=== PATIENT | female | born 1940 | race African-American/Black ===

== ENCOUNTER 2018-12-27 21:15 | Inpatient (IN) ==
[2018-12-27 22:34] LABS: BASO# 0.01 X1000 (0.0-0.2); BASO% 0.1 % (0.0-0.8); EOS# 0.01 X1000 (0.0-0.7); EOS% 0.1 % (0.0-10.0); HEMATOCRIT 38.1 % (37.0-47.0); HEMOGLOBIN 12.4 g/dL (12.0-16.0); IMM GRAN# 0.04 X1000 (0.0-0.04); IMM GRAN% 0.2 % (0.0-0.5); LYMPH# 1.15 X1000 (1.2-3.4); LYMPH% 7.1 % (20.5-51.1); MCH 29.7 PG (27-31); MCHC 32.5 g/dL (33-37); MCV 91.4 FL (81-99); MONO# 1.02 X1000 (0.11-0.59); MONO% 6.3 % (1.7-9.3); MPV 11.9 FL (7.4-10.4); NEUT# 14.02 X1000 (1.4-6.5); NEUT% 86.2 % (42.2-75.2); PLT 251 X1000 (130-400); RBC 4.17 XMIL (4.2-5.4); RDW 13.3 % (11.5-14.5); WBC 16.25 X1000 (4.8-10.8)
[2018-12-27 22:43] LABS: INR 1.02; PROTIME 13.5 Seconds (11.0-16.0)
[2018-12-27 23:08] LABS: ALB/GLOB RATIO 1.2; ALBUMIN 4.3 g/dL (3.5-5.0); CALCIUM 9.9 mg/dL (8.8-10.2); CREATININE 1.8 mg/dL (0.5-0.9); POTASSIUM 4.8 mmol/L (3.5-5.1); TOTAL BILIRUBIN 0.54 mg/dL (0.20-1.00); TOTAL PROTEIN 7.8 g/dL (6.3-8.3)
[2018-12-27] MEDS ORDERED: STERILE WATER INJ. INJ ONE (23:16)
[2018-12-27] MEDS ORDERED: GEODON IM ONE (23:16)
[2018-12-27] MEDS ORDERED: ATIVAN IM ONE (23:16)
[2018-12-27] MEDS ORDERED: ATIVAN ONE (23:22)
[2018-12-27] MEDS ORDERED: NS 1,000 ML IV ONE (23:42)
[2018-12-28] MEDS ORDERED: ROCEPHIN 1 GM in NS 50 ML IV ONE (00:26)
--- NOTE | 2018-12-28 00:51 | PROVIDER DOCUMENTATION ---
This chart was entered by Abigail Birmingham Scribe, acting as scribe for Og Mendoza MD. HPI-General Adult - General Chief Complaint: Altered Mental Status Stated Complaint: ams Time Seen by Provider: 12/27/18 21:18 Source: patient Unable to obtain history due to:: altered (no verbal response) Allergies/Adverse Reactions: Patient Allergies Allergy/AdvReac Type Severity Reaction Status Date / Time No Known Allergies Allergy Verified 12/27/18 23:05 Home Medications: Home Medication List Medication Instructions Recorded Confirmed Last Taken Type Diltiazem [Cardizem] 90 mg PO TID 12/21/11 12/27/18 03/29/14 History Omeprazole [Prilosec] 20 mg PO DAILY 12/21/11 12/27/18 03/29/14 History ROSUVAstatin [Crestor] 10 mg PO DAILY 12/21/11 12/27/18 03/29/14 History Dicyclomine [Bentyl] 20 mg PO 4XDAY PRN PRN #20 capsule 03/29/14 12/27/18 Unknown Rx Donepezil HCl 5 mg PO DAILY 12/27/18 12/27/18 Unknown History Gabapentin 100 mg PO QHS 12/27/18 12/27/18 Unknown History Loratadine 10 mg PO DAILY 12/27/18 12/27/18 Unknown History Polyethylene Glycol [Polyox 1 packet PO DAILY 12/27/18 12/27/18 Unknown History [id number]] Temazepam 15 mg PO QHS 12/27/18 12/27/18 Unknown History - History of Present Illness -Gen Adult Nature of Presenting Problems: pt is a 78 yr old female presenting via EMS, EMS reports pt was found partially under her dresser by family gloria, family last spoke with pt early this AM, pt was normal at that time, pt has hx of syncopal episodes. pt moves all extremities with ease, no verbal responses. pt has laceration to bridge of nose, right eye is swollen shut and swelling noted to forehead. family admits pt hx of same behaviors, family reports pt had them locked out of house when she fell, pt crawled underneath her dresser to hide after fall,pt normally crawls under furniture post falls. family reports pt will frequently stare off and not answer questions. Review of Systems - Adult - REVIEW OF SYSTEMS - ADULT ROS:: unobtainable per condition Constitutional: reports: no symptoms reported Past History - Adult - PAST MEDICAL HISTORY-ADULT Review of Records: reports: Old Records Reviewed, Nursing Assessment Review, Medications Reviewed, Social history reviewed & non-contributory. Major Childhood Illnesses: reports: denies history Cardiovascular: reports: denies history Respiratory: reports: denies history Gastrointestinal: reports: denies history Obstetrical/Gynecological: reports: denies history Genitourinary: reports: denies history Musculoskeletal: reports: denies history Neurological: reports: denies history Psychiatric: reports: denies history Endocrine/Immune: reports: denies history Other Conditions: reports: denies history - PRIOR SURGERIES/PROCEDURES Surgical/Procedure History: reports: appendectomy - IMMUNIZATION STATUS Childhood Immunizations: See Nurse Assessment Flu Vaccine: See Nurse Assessment - FAMILY HISTORY Family History: reviewed, not pertinent - SOCIAL HISTORY Smoking: non-smoker Substance Use: none/never Living Situation: family Physical Exam-General - PHYSICAL EXAM-ADULT Initial Vital Signs Reviewed: Yes - CONSTITUTIONAL General Appearance: alert, no apparent distress, other (no verbal response) - EYES Eyes: PERRL/EOMI - HEAD, EARS, NOSE, MOUTH & THROAT HENMT: moist mucous membranes, other (laceration across nose, swelling to forehead, right eye swollen shut) - NECK Neck: full range of motion, supple, normal inspection - RESPIRATORY Respiratory: lungs clear, normal breath sounds, no respiratory distress, no accessory muscle use - CARDIOVASCULAR Cardiovascular: normal peripheral pulses, regular rate, rhythm, no edema - GASTROINTESTINAL (ABDOMEN) Abdominal Exam: normal bowel sounds, non tender, soft - LYMPHATIC Lymphatic: no adenopathy - MUSCULOSKELETAL Back Exam: normal inspection Extremity: normal range of motion, non-tender, normal inspection - SKIN Integumentary: normal color, normal turgor, warm/dry, laceration(s) (1cm across bridge of nose), swelling (right eye swollen shut, swelling noted to forehead) - NEUROLOGIC Neurologic: grossly normal, no motor/sensory deficits - PSYCHIATRIC Psych/Mental Status: other (no verbal response) Progress - PLAN OF CARE/RESULTS Progress/Plan/Lab Results: Orders Category Date Time Status CHEST-1 VIEW [RAD] Stat Exams 12/27/18 21:[address] HEAD/C-SPINE W/O CONTRAST [CT] Stat Exams 12/27/18 21:[address] MAXILLOFACIAL(SINUS) W/O CO [CT] Stat Exams 12/27/18 21:47 Ordered PELVIS [RAD] Stat Exams 12/27/18 21:48 Ordered CBC WITH ELECTRONIC DIFF [HEME] Stat Lab 12/27/18 21:53 Uncollected CK TOTAL [CHEM] Stat Lab 12/27/18 21:55 Uncollected CMP [COMPREHENSIVE METABOLIC PANEL] [CHEM] Stat Lab 12/27/18 21:48 Uncollected PROTIME WITH INR [COAG] Stat Lab 12/27/18 21:53 Uncollected PTT [COAG] Stat Lab 12/27/18 21:53 Uncollected URINALYSIS W/POSS RFLX CULT [URINALYSIS] Stat Lab 12/27/18 21:53 Uncollected EKG [EKG] Stat Ther 12/27/18 21:58 Ordered Proceed to admit with Dr. Soto for rhabodomyolysis with IV fluids. Her syncope episode was likely related to dehydration given her elevated serum sodium. Trauma imaging was negative except for significant right facial, periorbital, and anterior frontal soft tissue swelling without fracture. She also has a large right periorbital and right frontal scalp hematoma. No blood thinners and no skull fractures. Nieces aware and agree with plan of care. Barnard catheter placed in ED and empiric rocephin given for possible UTI. Result Diagrams: 12/27/18 22:08 12/27/18 22:08 - CT/MRI 1 CT Study: Cervical Spine, Head Impression: Abnormal (head 1. no acute intracranial abnormality, chronic changes as noted 2. large right periorbital and right frontal scalp hematoma. no acute fracture. c spine 1. no acute fracture 2. multilevel severe spondylosis), See EMR Report 2 CT Study: Facial Bones (maxillofacial) Impression: Abnormal (significant right facial, periorbital and anterior frontal soft tissue swelling, no acute facial fracture), See EMR Report Departure - Departure Date of Disposition Decision: 12/28/18 Time of Disposition Decision: 00:31 DIAGNOSIS: Periorbital hematoma of right eye, Rhabdomyolysis, Hematoma of frontal scalp, Acute encephalopathy, Leukocytosis, Acute on chronic renal insufficiency Disposition: ADMITTED INPATIENT 09 Certified Medical Emergency: Emergent Condition: Fair Referrals and Follow-Ups: Lizbeth Montague [Primary Care Provider] - - Critical Care Note This patient required my direct & personal management of CC.: No Attestation - Physician/ DANNY Attestation Patient care was provided by Advanced Practice Provider:: No The physician spent face to face time with patient:: Yes Advanced Practice Provider documentation review:: Supervising physician onsite and consulted in the evaluation and care of this patient. The physician did have a face to face encounter with the patient. This chart was documented by the indicated scribe, (Abigail Birmingham Scribe) and accurately reflects the services I performed and decisions made by me, Og Mendoza MD, as attested by the provider's signature.
[2018-12-28 01:50] LABS: URINE SOURCE CATH
[2018-12-28 02:04] LABS: BILIRUBIN URINE NEGATIVE (NEGATIVE); BLOOD URINE LARGE (NEGATIVE); COLOR YELLOW; GLUCOSE URINE NEGATIVE (NEGATIVE); KETONE URINE NEGATIVE (NEGATIVE); LEUKOCYTES URINE NEGATIVE (NEGATIVE); NITRITE URINE NEGATIVE (NEGATIVE); PH URINE 5.5; PROTEIN URINE 50 mg/dL (NEGATIVE); SP GRAVITY URINE 1.016; TURBIDITY URINE CLEAR (CLEAR); UR EPITHELIAL CELLS <10 /HPF (<10); URINE BACTERIA NEGATIVE /HPF; URINE RBC <10 /HPF (<10); URINE WBC <10 /HPF (<10); UROBILINOGEN URINE NORMAL (NORMAL)
--- NOTE | 2018-12-28 06:46 | Diag Imaging Result Doc PS360 ---
CT HEAD/C-SPINE W/O CONTRAST, CT MAXILLOFACIAL(SINUS) W/O CO - 12/27/2018 INDICATION: trauma COMPARISON: 12/22/2017 FINDINGS: Head CT: Stable surgical changes to the right frontal skull. Stable left ventriculostomy shunt catheter. Stable moderately extensive cerebral white matter hypodensities diffusely, worst at the right frontal lobe. No intracranial mass or hemorrhage. There is a large right periorbital soft tissue hematoma. The calvarium is intact. Cervical spine: Alignment is anatomic. No fracture or subluxation. There is moderate disc degeneration at C4-5, C5-6 and C6-7. Facial bones: The facial bones are intact. No fracture or dislocation. There is a large forehead and right periorbital soft tissue hematoma. IMPRESSION: Severe forehead and right periorbital soft tissue hematoma. No internal injuries. This exam was performed using automated exposure control, adjustment of mA or kV according to patient size, and/or use of iterative reconstruction technique Electronically signed by Oliver Zhu 12/28/2018 6:44 AM
--- NOTE | 2018-12-28 07:11 | Diag Imaging Result Doc PS360 ---
CT THORAX/ABD/PELVIS W/O CON - 12/27/2018 INDICATION: trauma COMPARISON: 08/23/2014 FINDINGS: CHEST: There is severe patient motion artifact. Heart and great vessels are grossly normal. No adenopathy. There is some trace linear atelectasis. Otherwise the lungs are clear. No obvious fractures. Abdomen pelvis: There are numerous bilateral renal cysts. No radiodense renal stones. No hydronephrosis or hydroureter. Abdominal organs are grossly normal. Shunt catheter tubing terminates at the left lower quadrant. No bowel obstruction or inflammation. Degenerating fibroids in the uterine fundus. Urinary bladder and rectum are normal. No obvious fractures. IMPRESSION: No acute injury. This exam was performed using automated exposure control, adjustment of mA or kV according to patient size, and/or use of iterative reconstruction technique Electronically signed by Oliver Zhu 12/28/2018 7:09 AM
--- NOTE | 2018-12-28 07:29 | EKG Report ---
Test Performed on : 12/28/2018 04:07:37 AM Test Reason : syncope Blood Pressure : / mmHG Vent. Rate : 083 BPM Atrial Rate : 083 BPM P-R Int : 168 ms QRS Dur : 074 ms QT Int : 406 ms P-R-T Axes : 077 060 077 degrees QTc Int : 477 ms Normal sinus rhythm. Normal ECG When compared with ECG of 20-DEC-2017 16:49, No significant change was found Unconfirmed Result
--- NOTE | 2018-12-28 08:46 | HISTORY AND PHYSICAL ---
PRIMARY CARE PHYSICIAN: Dr. Lizbeth Montague. CHIEF COMPLAINT: Altered mental status. HISTORY OF PRESENTING ILLNESS: An 78-year-old elderly female with a history of CVA, GERD, chronic kidney disease, hypertension who apparently was found on the floor by family members. Apparently, she has a history of frequent falls. It is unclear how long she was on the floor. She sustained scalp hematoma and was moderately altered. Due to her presenting symptoms, she will require admission for further management. The patient is a poor historian due to her condition and most of the history is obtained from previous records. PAST MEDICAL HISTORY: Includes CVA, GERD, chronic kidney disease, hypertension, brain aneurysm. PAST SURGICAL HISTORY: Appendectomy, aneurysm clipping. ALLERGIES: No known drug allergies. CURRENT MEDICATIONS: Diltiazem 90 mg p.o. t.i.d., Donepezil 5 mg p.o. daily, gabapentin 100 mg p.o. at bedtime, omeprazole 20 mg p.o. daily, Crestor 10 mg p.o. daily, temazepam 15 mg p.o. at bedtime. SOCIAL HISTORY: No history of smoking, alcohol or illicit drug use. FAMILY HISTORY: Unknown. REVIEW OF SYSTEMS: Unable to obtain. PHYSICAL EXAMINATION: GENERAL: The patient is resting comfortably. She is without any respiratory distress. VITAL SIGNS: Pulse 128, respirations 26, blood pressure 152/89. HEENT: There is moderate amount of soft tissue swelling on her scalp and right periorbital region. NECK: No masses. CHEST: Clear to auscultation. CARDIOVASCULAR: Regular rate and rhythm. ABDOMEN: Soft. Positive bowel sounds. EXTREMITIES: No edema. NEUROLOGIC: Patient is arousable to tactile stimuli. GENITOURINARY: No bladder distention. SKIN: Warm. LABORATORIES AND STUDIES: WBC 16.25, hemoglobin 12.4, hematocrit 38.1, platelets 251,000. Sodium 148, potassium 4.8, chloride 107, CO2 is 21, BUN is 27, creatinine is 1.8, glucose is 142. CT of the head was negative. ASSESSMENT: This is an 78-year-old female with a history of CVA, GERD, chronic kidney disease and hypertension who presented to the emergency department after she had a fall. She apparently was found on the floor and it is unclear how long she has been there. She was evaluated in the emergency department and she was basically altered and she seems to have sustained soft-tissue hematoma on her frontal scalp and also a right periorbital region. Due to her presenting symptoms, she will require admission for further management. 1. Altered mental status. Encephalopathy. 2. Dehydration. 3. Status post multiple falls. 4. Right frontal scalp hematoma. 5. Right eye periorbital hematoma. 6. Rhabdomyolysis. 7. Acute on chronic kidney disease. 8. Leukocytosis. 9. Hypertension. PLAN: 1. We will admit patient to PVC 2. Continue with neuro checks. 3. Continue with IV fluids. 4. The patient had adequate pain control. 5. We will monitor her creatine kinase. 6. Monitor renal function. 7. We will check blood cultures. Start patient on empiric antibiotics. 8. We will monitor blood pressure. Resume antihypertensive agent. 9. We will put patient on DVT prophylaxis SCD and we will continue to follow and reassess. Make further recommendation based on patient's clinical course. 10. We will also consult social service. cc: Jeramie Soto MD MTDD
[2018-12-28] MEDS: NS 1,000 ML IV SCH ×2 (10:40→22:52)
[2018-12-28] MEDS ORDERED: TYLENOL PO PRN (10:43)
[2018-12-28] MEDS ORDERED: ZOFRAN IV PRN (10:43)
[2018-12-28] MEDS: CARDIZEM PO SCH ×3 (10:43→21:04)
[2018-12-28] MEDS: PRILOSEC PO SCH (10:43)
[2018-12-28] MEDS: ARICEPT PO SCH (10:43)
[2018-12-28 11:07] LABS: ALB/GLOB RATIO 1.4; ALBUMIN 3.8 g/dL (3.5-5.0); CALCIUM 9.1 mg/dL (8.8-10.2); CREATININE 1.5 mg/dL (0.5-0.9); MAGNESIUM 2.1 mg/dL (1.5-2.7); PHOSPHORUS 2.6 mg/dL (2.7-4.5); POTASSIUM 3.8 mmol/L (3.5-5.1); TOTAL BILIRUBIN 0.66 mg/dL (0.20-1.00); TOTAL PROTEIN 6.6 g/dL (6.3-8.3)
[2018-12-28 11:25] LABS: BASO# 0.02 X1000 (0.0-0.2); BASO% 0.2 % (0.0-0.8); HEMOGLOBIN 10.5 g/dL (12.0-16.0); IMM GRAN# 0.03 X1000 (0.0-0.04); IMM GRAN% 0.2 % (0.0-0.5); LYMPH# 1.71 X1000 (1.2-3.4); LYMPH% 13.5 % (20.5-51.1); MCH 29.3 PG (27-31); MCHC 31.8 g/dL (33-37); MCV 92.2 FL (81-99); MONO# 1.32 X1000 (0.11-0.59); MONO% 10.4 % (1.7-9.3); MPV 11.7 FL (7.4-10.4); NEUT# 9.56 X1000 (1.4-6.5); NEUT% 75.7 % (42.2-75.2); PLT 231 X1000 (130-400); RBC 3.58 XMIL (4.2-5.4); RDW 13.4 % (11.5-14.5); WBC 12.64 X1000 (4.8-10.8)
[2018-12-28] MEDS: ROCEPHIN 1 GM in NS 50 ML IV SCH (11:57)
--- NOTE | 2018-12-28 13:06 | PROGRESS NOTE ---
DATE: 12/28/2018 SUBJECTIVE: This patient is lying comfortably in bed. She was sleepy, but arousable. She does have a soft tissue edema/hematoma at the level of the right eye and forehead. She has a little laceration in the lower eyelid. Some blood in the sclerae, but PERRLA. She is able to say her name and date of . She is following commands on and off, but she does have some generalized weakness, especially on the right side. She is withdrawing some with pain stimulation. She is really sleepy. Apparently, she just had a treatment with Geodon recently. OBJECTIVE: Vital Signs: Temperature 97.4 degrees, pulse 71, respiratory rate 16, blood pressure 137/73, oxygen saturation 100% on room air. HEENT: Head normocephalic. She does have a trauma at the level of the right forehead and eye. It is swollen. She has an edema/hematoma, with a small laceration in the eyelid, lower part. I do not think she needs some stitches. Neck: Supple. No JVD. Central trachea. Chest: Clear to auscultation. No wheezing. No rales. Abdomen: Soft, nontender, nondistended. No hepatosplenomegaly. Extremities: I do not see edema. No clubbing, no cyanosis, but I think she has some right-sided weakness. Neurologic: She has a prior history of a stroke. I am not sure if this is new or old. LABORATORY DATA: Pending lab work today. ASSESSMENT AND PLAN: 1. Altered mental status, encephalopathy. Apparently, recently she received Geodon, and she is sleepy because of that. I am not quite sure about her baseline. I do not have any family members at the bedside. This patient will be transferred to the PVC unit. We will monitor this patient closely. 2. Dehydration. Continue with intravenous fluids. 3. Status post multiple falls. Aware. Apparently, the patient was found down at home. We do not know exactly how much time she has been on the floor, but she does have rhabdomyolysis. 4. Rhabdomyolysis. As above. Continue with the same management. 5. Right frontal scalp hematoma, as well as right eye periorbital hematoma. Aware. We will just monitor for now. CT of the head and face did not show any fracture or intracranial abnormality. 6. Acute on chronic kidney disease, likely due to dehydration/rhabdomyolysis. Continue with intravenous fluids for now. 7. Leukocytosis. Probably this is reactive. She has been placed on ceftriaxone as well. Laboratory showed urinalysis with blood, but no nitrate, no white blood cell or bacteria. 8. Hypertension. For now, we will monitor. We will continue with some of her home medications. cc: Chris Pressley MD
[2018-12-28] MEDS: RESTORIL PO SCH (21:04)
[2018-12-29 06:08] LABS: BASO# 0.02 X1000 (0.0-0.2); BASO% 0.2 % (0.0-0.8); EOS# 0.04 X1000 (0.0-0.7); EOS% 0.4 % (0.0-10.0); HEMOGLOBIN 10.5 g/dL (12.0-16.0); IMM GRAN# 0.03 X1000 (0.0-0.04); IMM GRAN% 0.3 % (0.0-0.5); LYMPH# 2.05 X1000 (1.2-3.4); MCH 29.9 PG (27-31); MCHC 31.8 g/dL (33-37); MONO# 0.94 X1000 (0.11-0.59); MONO% 9.7 % (1.7-9.3); MPV 11.8 FL (7.4-10.4); NEUT# 6.66 X1000 (1.4-6.5); NEUT% 68.4 % (42.2-75.2); PLT 203 X1000 (130-400); RBC 3.51 XMIL (4.2-5.4); RDW 13.5 % (11.5-14.5); WBC 9.74 X1000 (4.8-10.8)
[2018-12-29 06:30] LABS: CALCIUM 9.3 mg/dL (8.8-10.2); CREATININE 1.5 mg/dL (0.5-0.9); POTASSIUM 3.6 mmol/L (3.5-5.1)
[2018-12-29 07:03] LABS: CK INDEX 0.2 (0.0-2.5); CK-MB 10.52 ng/mL (0.0-5.0)
[2018-12-29] MEDS: CARDIZEM PO SCH ×3 (08:03→21:16)
[2018-12-29] MEDS: PRILOSEC PO SCH (08:03)
[2018-12-29] MEDS: ARICEPT PO SCH (08:03)
[2018-12-29] MEDS: 1/2 NS 1,000 ML IV SCH ×3 (09:19→23:27)
[2018-12-29] MEDS: ROCEPHIN 1 GM in NS 50 ML IV SCH (10:41)
--- NOTE | 2018-12-29 11:08 | PROGRESS NOTE ---
DATE: 12/29/2018 SUBJECTIVE: The patient is lying comfortably in bed. She is answering my questions. She is not oriented to time but she is following commands. Her forehead and eye look less swollen compared with yesterday. She is able to open a little bit the eye. She is having good urine output. Her creatinine is at her baseline. I have switched the normal saline to half NS given her hypernatremia. OBJECTIVE: Vital Signs: Temperature 98.2 degrees, pulse 71, respiratory rate 25, blood pressure 145/62, oxygen saturation 100% on room air. HEENT: Head normocephalic. She does have trauma at the level of the right forehead and eye is swollen. She has an edema/hematoma with a small laceration in the lower part of the eyelid. Neck: Supple. No JVD. Central trachea. Chest: Clear to auscultation. No wheezing. No rales. Abdomen: Soft, nontender, nondistended. No hepatosplenomegaly. Extremities: No edema, no clubbing, no cyanosis. I do not see any weakness at this moment. Neurological Examination: This patient is awake. She is oriented x2. She is following commands. She is answering some of my questions. Laboratory: WBC 9.7, hemoglobin 10.5, hematocrit 33, platelets 203,000. Sodium 147, potassium 3.6, chloride 112, bicarbonate 20, BUN 19, creatinine 1.5, glucose 91, calcium 9.3. CK 5831. ASSESSMENT AND PLAN: 1. Altered mental status, encephalopathy. She seems to be more awake at this moment. She is answering some of my questions and she is following commands. She is oriented x2. At this moment, no family members at the bedside but yesterday afternoon, I re-evaluated this patient. She was doing much better. I will continue to monitor this patient in the [facility] but she is stable enough also to be transferred at some point today or tomorrow to the floor. I talked to the patient and likely, she will need to go to a rehab center. Vital signs are stable. She is hypernatremic. 2. Dehydration, resolved. 3. Status post multiple falls, aware. I had a conversation with her niece at the bedside yesterday in the afternoon and she stated that she has been having multiple falls, but she does not want to get any help or go to any rehab center. 4. Rhabdomyolysis. Continue with the same management. Continue with intravenous fluids. CK level still elevated. 5. Right frontal scalp hematoma as well as right eye periorbital hematoma. Aware. We will just monitor for now. CT of the head and face did not show any fracture or intracranial abnormality. 6. Acute on chronic kidney disease, likely due to dehydration and rhabdomyolysis. Continue with intravenous fluids for now. Now, her creatinine is basically at baseline. 7. Leukocytosis, reactive, now back to normal. 8. Hypertension. For now, we will monitor. Continue home medications. 9. Hypernatremia. I have switched the normal saline to half normal saline. I instructed the patient to drink more water. 10. Possible history of dementia. She is on donepezil at home which I will continue. cc: Chris Pressley MD
[2018-12-29] MEDS: RESTORIL PO SCH (21:16)
[2018-12-30 08:43] LABS: BASO# 0.01 X1000 (0.0-0.2); BASO% 0.1 % (0.0-0.8); EOS# 0.09 X1000 (0.0-0.7); EOS% 1.1 % (0.0-10.0); HEMATOCRIT 30.6 % (37.0-47.0); HEMOGLOBIN 9.9 g/dL (12.0-16.0); LYMPH% 23.7 % (20.5-51.1); MCH 30.2 PG (27-31); MCHC 32.4 g/dL (33-37); MCV 93.3 FL (81-99); MONO# 0.88 X1000 (0.11-0.59); MPV 12.1 FL (7.4-10.4); NEUT# 5.14 X1000 (1.4-6.5); NEUT% 64.1 % (42.2-75.2); PLT 206 X1000 (130-400); RBC 3.28 XMIL (4.2-5.4); RDW 13.3 % (11.5-14.5); WBC 8.02 X1000 (4.8-10.8)
[2018-12-30 08:44] LABS: ALB/GLOB RATIO 1.6; ALBUMIN 3.6 g/dL (3.5-5.0); CALCIUM 8.6 mg/dL (8.8-10.2); CREATININE 1.6 mg/dL (0.5-0.9); MAGNESIUM 1.8 mg/dL (1.5-2.7); POTASSIUM 3.6 mmol/L (3.5-5.1); TOTAL BILIRUBIN 0.56 mg/dL (0.20-1.00); TOTAL PROTEIN 5.9 g/dL (6.3-8.3)
[2018-12-30 09:31] LABS: CK INDEX 0.1 (0.0-2.5); CK-MB 6.03 ng/mL (0.0-5.0)
[2018-12-30] MEDS: 1/2 NS 1,000 ML IV SCH (10:30)
[2018-12-30] MEDS: ARICEPT PO SCH (10:44)
[2018-12-30] MEDS: CARDIZEM PO SCH ×3 (10:46→20:24)
[2018-12-30] MEDS: PRILOSEC PO SCH (10:46)
[2018-12-30] MEDS: ROCEPHIN 1 GM in NS 50 ML IV SCH (12:00)
--- NOTE | 2018-12-30 12:10 | Diag Imaging Result Doc PS360 ---
EXAM: CHEST-PORTABLE HISTORY: for rehab placement TECHNIQUE: Single view COMPARISON: 12/27/2017 FINDINGS: The lungs are well expanded. The heart is not enlarged. The vessels are not distended. There are no infiltrates. No effusion identified. There is a left-sided ventriculoperitoneal shunt catheter. Mild scoliosis. IMPRESSION: Negative exam. Electronically signed by Deonte De La Rosa 12/30/2018 12:07 PM
[2018-12-30] MEDS: RESTORIL PO SCH (20:24)
[2018-12-30] MEDS: MELATONIN PO SCH (20:24)
--- NOTE | 2018-12-30 22:10 | PROGRESS NOTE ---
DATE: 12/30/2018 SUBJECTIVE: This patient is lying in bed. She is answering my questions. She is oriented. She is following commands. Her forehead and eye look less swollen today compared with the previous days. OBJECTIVE: Vital Signs: Temperature 97.4 degrees, pulse 61, respiratory rate 18, blood pressure 131/56, oxygen saturation 100% on room air. HEENT: Head normocephalic. She does have a trauma at the level of the right forehead and eye which are swollen. She has edema/hematoma with small laceration in the lower part of the eyelid. Neck: Supple. No JVD. Central trachea. Chest: Clear to auscultation. No wheezing. No rales. Abdomen: Soft, nontender, nondistended. No hepatosplenomegaly. Extremities: Trace edema. No clubbing. No cyanosis. I do not feel any weakness. Neurological: The patient is alert, awake, and oriented x3. No focal deficits. LABORATORY: WBC 8, hemoglobin 9.9, hematocrit 30.6, platelets 206,000. Sodium 142, potassium 3.6, chloride 109, bicarbonate 21, BUN 22, creatinine 1.6, glucose 105, calcium 8.6. AST 92, ALT 41, alkaline phosphatase 73, CK 4298. ASSESSMENT AND PLAN: 1. Altered mental status, encephalopathy, resolved. 2. Dehydration, resolved. 3. Status post multiple falls. Aware. Physical therapy and occupational therapy on board. 4. Rhabdomyolysis. Continue with same management. Continue with intravenous fluids. CK level still elevated, but trending down. 5. Right frontal scalp hematoma as well as right eye periorbital hematoma. Aware. This is getting better. CT scan of the head and face did not show any acute abnormality. 6. Acute on chronic kidney disease, likely due to dehydration and rhabdomyolysis. Continue with intravenous fluids for now. Her creatinine is basically at baseline. 7. Leukocytosis, reactive. 8. Hypertension. We will continue to monitor. Continue home medications, which I will modify a little bit. 9. Hypernatremia, resolved. 10. Possible history of dementia. Continue with donepezil. cc: Chris Pressley MD
[2018-12-31 08:29] LABS: ALB/GLOB RATIO 1.3; ALBUMIN 3.4 g/dL (3.5-5.0); CREATININE 1.3 mg/dL (0.5-0.9); TOTAL BILIRUBIN 0.61 mg/dL (0.20-1.00)
[2018-12-31] MEDS ORDERED: CRESTOR PO SCH (09:00)
[2018-12-31 09:21] LABS: CK INDEX 0.2 (0.0-2.5); CK-MB 3.85 ng/mL (0.0-5.0)
[2018-12-31] MEDS ORDERED: MYLICON PO PRN (10:17)
[2018-12-31] MEDS: ARICEPT PO SCH (10:55)
[2018-12-31] MEDS: PRILOSEC PO SCH (10:56)
[2018-12-31] MEDS: CARDIZEM PO SCH ×2 (10:56→21:01)
[2018-12-31] MEDS: MIRALAX PO SCH (10:57)
[2018-12-31] MEDS: CLARITIN PO SCH (10:57)
[2018-12-31] MEDS: KEFLEX PO SCH ×2 (12:24→21:01)
[2018-12-31] MEDS: FLONASE NAS SCH (18:40)
--- NOTE | 2018-12-31 20:11 | PROGRESS NOTE ---
DATE: 12/31/2018 SUBJECTIVE: The patient is lying comfortably in bed. She is answering all my questions. She has been pulling out her IV line multiple times, even though we have been instructed the patient not to do that. Fortunately, her laboratory is getting better. Actually, her CK level today decreased from 4298 to 2537, and her creatinine decreased from 1.6 to 1.3, but this is basically her baseline. Her vital signs are stable and she is tolerating p.o. and having bowel movements. OBJECTIVE: Vital Signs: Temperature 98.6 degrees, pulse 81, respiratory rate 16, blood pressure 129/51, oxygen saturation 99 on room air. HEENT: Head normocephalic. She does have trauma at the level of the right forehead and eye which are swollen. There is an edema/hematoma with small laceration in the lower part of the eyelid. Neck: Supple. No JVD. Central trachea. Chest: Clear to auscultation. No wheezing. No rales. Abdomen: Soft, nontender, nondistended. No hepatosplenomegaly. Extremities: No edema, no clubbing, no cyanosis, I do not feel any weakness. Neurological: The patient is alert. She is oriented x3. No focal deficits, but it looks like she has some dementia. LABORATORY: Sodium 145, potassium 4, chloride 110, bicarbonate 24, BUN 20, creatinine 1.3, glucose 100, calcium 9. ASSESSMENT AND PLAN: 1. Altered mental status, encephalopathy, resolved. This is basically her baseline. She does have dementia. 2. Dehydration, resolved. 3. Status post multiple falls. Aware. Physical therapy and occupational therapy on board. The plan is to send this patient to rehab. 4. Rhabdomyolysis. This is getting better. CK level trending down. 5. Right frontal scalp hematoma as well as right eye periorbital hematoma. Aware. Improving. CT scan of the head and face with no acute abnormalities. 6. Acute on chronic kidney disease, likely due to dehydration and rhabdomyolysis, basically resolved. This is her baseline. 7. Leukocytosis, reactive. 8. Hypertension. Continue with the same management. 9. Hypernatremia, resolved. 10. History of dementia. Aware. cc: Chris Pressley MD
[2018-12-31] MEDS: MELATONIN PO SCH (21:02)
[2018-12-31] MEDS: RESTORIL PO SCH (21:02)
[2019-01-01 07:44] LABS: ALB/GLOB RATIO 1.2; ALBUMIN 3.6 g/dL (3.5-5.0); CALCIUM 9.1 mg/dL (8.8-10.2); CREATININE 1.5 mg/dL (0.5-0.9); POTASSIUM 4.1 mmol/L (3.5-5.1); TOTAL BILIRUBIN 0.56 mg/dL (0.20-1.00); TOTAL PROTEIN 6.6 g/dL (6.3-8.3)
[2019-01-01 07:47] LABS: HEMATOCRIT 31.6 % (37.0-47.0); HEMOGLOBIN 10.1 g/dL (12.0-16.0)
[2019-01-01 08:22] LABS: CK INDEX 0.2 (0.0-2.5); CK-MB 2.95 ng/mL (0.0-5.0)
[2019-01-01] MEDS: ARICEPT PO SCH (09:28)
[2019-01-01] MEDS: KEFLEX PO SCH ×2 (09:29→20:05)
[2019-01-01] MEDS: CARDIZEM PO SCH ×2 (09:29→20:05)
[2019-01-01] MEDS: MIRALAX PO SCH (09:29)
[2019-01-01] MEDS: PRILOSEC PO SCH (09:29)
[2019-01-01] MEDS: CLARITIN PO SCH (09:29)
[2019-01-01] MEDS: FLONASE NAS SCH (09:31)
--- NOTE | 2019-01-01 12:29 | PROGRESS NOTE ---
DATE: 01/01/2019 SUBJECTIVE: This patient is resting comfortably in bed. She is feeling better. OBJECTIVE: Vital Signs: Temperature 98, pulse 62, respiratory rate 14, blood pressure 142/64, oxygen saturation 100% on room air. HEENT: Head normocephalic. She does have a trauma at the level of the right forehead and right eye, with edema, and a small laceration in the lower part of the eyelid but this is getting better. Neck: Supple. No JVD. Central trachea. Chest: Clear to auscultation. No wheezing. No rales. Abdomen: Soft, nontender, and nondistended. No hepatosplenomegaly. Extremities: No edema. No clubbing. No cyanosis. No focal weakness. Neurological: The patient is alert and oriented times 3. No focal deficit. LABORATORY: Hemoglobin 10.1 and hematocrit 31.6. Sodium 143, potassium 4.1, chloride 109, bicarbonate 25, BUN 21, creatinine 1.5, glucose 89, calcium 9.1, AST 62, ALT 37, alkaline phosphatase 76, CK 1,772, and albumin 3.6. ASSESSMENT AND PLAN: 1. Altered mental status, encephalopathy, resolved. 2. Dehydration, resolved. 3. Status post multiple falls. Aware. Physical Therapy is involved and the goal is to send this patient to a rehab center. 4. Rhabdomyolysis, this is getting better. CK level is trending down. 5. Right frontal scalp hematoma as well as right eye periorbital hematoma. Aware. Improving. 6. Acute on chronic kidney disease, likely due to dehydration and rhabdomyolysis, basically resolved. This is her baseline. 7. Leukocytosis, reactive. 8. Hypertension. We will continue the same management. 9. Hypernatremia, resolved. 10.History of dementia. Aware. Continue with home medications. cc: Chris Pressley MD
[2019-01-01] MEDS: RESTORIL PO SCH (20:05)
[2019-01-01] MEDS: MELATONIN PO SCH (20:05)
[2019-01-02] MEDS: CARDIZEM PO SCH ×2 (10:35→21:45)
[2019-01-02] MEDS: PRILOSEC PO SCH (10:35)
[2019-01-02] MEDS: ARICEPT PO SCH (10:35)
[2019-01-02] MEDS: KEFLEX PO SCH ×2 (10:35→21:44)
[2019-01-02] MEDS: CLARITIN PO SCH (10:35)
[2019-01-02] MEDS: FLONASE NAS SCH (10:35)
[2019-01-02] MEDS: MIRALAX PO SCH (10:35)
--- NOTE | 2019-01-02 15:27 | PROGRESS NOTE ---
DATE: 01/02/2019 SUBJECTIVE: This patient seems to be feeling better. No acute events overnight. OBJECTIVE: Vital signs: Temperature 98.2 degrees, pulse 57, respiratory rate 16, blood pressure 124/49, oxygen saturation 100% on room air. HEENT: Head normocephalic. She does have trauma at the level of the left right forehead and right eye with edema and small laceration in the lower part of the eyelid. This is getting better. Neck: Supple. No JVD. Central trachea. Chest: Clear to auscultation. No wheezing. No rales. Abdomen: Soft, nontender, nondistended. No hepatosplenomegaly. Extremities: No edema. No clubbing. No cyanosis. No focal weakness Neurological: Alert and oriented x3, but generalized weakness. LABORATORY: No lab work done today. ASSESSMENT: 1. Altered mental status, encephalopathy, resolved. 2. Dehydration, resolved. 3. Status post multiple falls, aware. Physical therapy involved and the goal is to send this patient to a rehab center. 4. Rhabdomyolysis. This is better. CK level is trending down. 5. Right frontal scalp hematoma as well as right eye periorbital hematoma. Aware, improving. 6. Acute on chronic kidney disease, likely due to dehydration/rhabdomyolysis, basically resolved. Back to her baseline. 7. Leukocytosis, reactive. 8. Hypertension. Continue same management. 9. Hypernatremia, resolved. 10. History of dementia. Aware. Continue home medications. PLAN: This patient unfortunately cannot live by herself due to her dementia and multiple falls. The family has requested to send this patient to a rehab center and this patient is weak so she will be a good candidate for it. cc: Chris Pressley MD MTDMandy
[2019-01-02] MEDS: MELATONIN PO SCH (21:44)
[2019-01-02] MEDS: RESTORIL PO SCH (21:45)
[2019-01-03 07:22] LABS: BASO# 0.02 X1000 (0.0-0.2); BASO% 0.3 % (0.0-0.8); EOS% 1.7 % (0.0-10.0); HEMATOCRIT 33.4 % (37.0-47.0); HEMOGLOBIN 10.9 g/dL (12.0-16.0); IMM GRAN# 0.03 X1000 (0.0-0.04); IMM GRAN% 0.5 % (0.0-0.5); LYMPH# 1.92 X1000 (1.2-3.4); LYMPH% 32.8 % (20.5-51.1); MCH 30.1 PG (27-31); MCHC 32.6 g/dL (33-37); MCV 92.3 FL (81-99); MONO# 0.59 X1000 (0.11-0.59); MONO% 10.1 % (1.7-9.3); MPV 11.9 FL (7.4-10.4); NEUT# 3.19 X1000 (1.4-6.5); NEUT% 54.6 % (42.2-75.2); PLT 249 X1000 (130-400); RBC 3.62 XMIL (4.2-5.4); RDW 13.5 % (11.5-14.5); WBC 5.85 X1000 (4.8-10.8)
[2019-01-03 07:48] LABS: ALB/GLOB RATIO 1.4; ALBUMIN 3.8 g/dL (3.5-5.0); CALCIUM 9.4 mg/dL (8.8-10.2); CREATININE 1.5 mg/dL (0.5-0.9); POTASSIUM 4.2 mmol/L (3.5-5.1); TOTAL BILIRUBIN 0.46 mg/dL (0.20-1.00); TOTAL PROTEIN 6.6 g/dL (6.3-8.3)
[2019-01-03 08:15] LABS: CK INDEX 0.3 (0.0-2.5); CK-MB 2.06 ng/mL (0.0-5.0)
[2019-01-03] MEDS: FLONASE NAS SCH (08:53)
[2019-01-03] MEDS: PRILOSEC PO SCH (08:53)
[2019-01-03] MEDS: KEFLEX PO SCH ×2 (08:53→20:20)
[2019-01-03] MEDS: ARICEPT PO SCH (08:53)
[2019-01-03] MEDS: MIRALAX PO SCH (08:53)
[2019-01-03] MEDS: CARDIZEM PO SCH ×2 (08:53→20:19)
[2019-01-03] MEDS: CLARITIN PO SCH (08:53)
--- NOTE | 2019-01-03 18:37 | PROGRESS NOTE ---
DATE: 01/03/2019 SUBJECTIVE: Today, Ms. Yun refers to be doing fairly okay. No new complaints. Has not had any more falls. Has not witnessed any seizures. Ms. Yun does not really remember anything that happened. The niece tells me that they theorize that she might have fallen, passed out, in the registered nurse hh case manager prior to coming here, which Ms. Yun herself does not remember. Apparently, she was found on the floor for a prolonged period of time. She did sustain some injury to the right periorbital area which was remarkably swollen per documentation on arrival. She refers to be doing a lot better now. OBJECTIVE: Vital signs: Blood pressure is 112/44, pulse of 60, respirations 12, temperature is 98.7 degrees. General: Ms. Yun is an 78-year-old female. She is in bed in no distress. Mucosa is pink and moist. Anicteric. Acyanotic. Neck: Supple. There are some ecchymotic lesions around the periorbital area from the trauma. Chest: Clear to auscultation. Cardiovascular: Regular rate and rhythm. Abdomen: Soft, nontender. Bowel sounds present. Extremities: No pedal edema. STATION OPERATOR: Patient is awake, alert, follows commands. LABORATORY DATA: CBC shows mild normocytic anemia. Chemistry shows a creatinine of 1.5 which seems to be fairly patient's baseline. CURRENT MEDICATIONS: Have also been reviewed. ASSESSMENT: 1. Loss of consciousness. The patient does not really remember the circumstances leading to her fall and it sounds like she was down for a long period of time. Apparently, this is not the very first time it has happened. Her initial CT scan did not show any acute changes. However, she does have some chronic changes, especially on the right parietal lobe. She also has ventriculostomy for a previous brain bleed. These features will put Ms. Yun at a higher risk of seizures. Apparently, this is about the third time she was found to have fallen down and remained on the floor for some time. Post fall, she becomes very confused, occasionally acting weird, which sounds to me like postictal encephalopathic changes. In either case, I think it is reasonable to do an electroencephalogram and also get Neurology to evaluate her before she gets discharged. 2. Clinical volume depletion, improved. 3. Right frontal scalp hematoma. 4. History of chronic kidney disease stage 3A to B. 5. History of dementia. 6. Previous history of brain bleed, status post craniotomy and ventriculostomy noted. 7. Multiple falls. The patient has been evaluated by Physical Therapy. There is a plan for her discharge to a rehab. cc: Gabriele Rogers MD
[2019-01-03] MEDS: MELATONIN PO SCH (20:19)
[2019-01-03] MEDS: RESTORIL PO SCH (20:20)
[2019-01-04] MEDS: CLARITIN PO SCH (09:51)
[2019-01-04] MEDS: CARDIZEM PO SCH ×2 (09:51→20:39)
[2019-01-04] MEDS: MIRALAX PO SCH (09:51)
[2019-01-04] MEDS: PRILOSEC PO SCH (09:51)
[2019-01-04] MEDS: ARICEPT PO SCH (09:51)
[2019-01-04] MEDS: FLONASE NAS SCH (09:51)
[2019-01-04] MEDS: KEFLEX PO SCH ×2 (09:51→20:39)
[2019-01-04] MEDS: KEPPRA PO SCH ×2 (13:27→20:39)
--- NOTE | 2019-01-04 18:19 | CONSULTATION ---
DATE OF CONSULTATION: 01/04/2019 Ms. Yun is 78 years old and she has had at least 3 episodes of collapse with question of seizure. History from the patient is that she recalls nothing from any of these events. Dr. Infante saw her 12 months ago and found similar history following an episode then. Today, Ms. Yun told me that she lives alone. She remembers being seated, watching television, feeling well. She next realized she was on her way to the hospital. She does not recall getting up, falling, discovering herself on the floor at home or being unable to get up without assistance. Admission note indicates family found her down on the floor with uncertain time frame for her time down. There was evidence of scalp hematoma. She did not seem to be herself mentally. Ms Yun told me that she has not been herself mentally since her aneurysm surgery about 12 years ago. She has been aware of some forgetfulness, possibly worse in recent years than in prior years. She is not aware of any other brain event. She has not had diagnosed stroke, definitely diagnosed seizure, serious headaches. She told me that she takes her medicines on her own with no supervision and she believes she takes them correctly. The computer record for this admission shows her home medicines include donepezil 5 mg daily and Ms. Yun cannot tell me how long she has been taking that. Other ELECTRICAL INSPECTOR active medicines listed are temazepam 30 mg p.r.n., trazodone 100 mg/200 mg at bedtime, gabapentin 100 mg at bedtime. Discharge summary 12 months ago did not list trazodone, temazepam, gabapentin, or donepezil. Lab work this admission showed initial sodium 148, later corrected. BUN was initially 27 and later corrected. Initial CK was greater than 5000 and recently down to 700. Liver enzymes were elevated initially but almost back to normal on recent lab. Noncontrast CT of the head shows right frontal skull defect and usual widespread micro ischemic change. EEG shows borderline slowing and probable right frontal breach rhythm. In addition, there is intermittent right frontal epileptiform discharge. She has been afebrile. Systolic blood pressure ranged from 100-192 in the first several hours after presentation, more stable 110s-150s in the last few days. Initial heart rate was as high as 130 in the 1st few hours but stable 50s-70s in the last few days. On exam, Ms. Yun is awake, alert, attentive, and appropriate. Speech is not dysarthric. Language function is intact. Remote memory is fair. Recent memory is poor. She was not able to name the President. She identified the correct month but could not tell me the day of the week. I did not test her cognitive function further. Right frontal skull defect is noted. I do not find meningismus. She has good power symmetrically in the arms and legs. She did well on finger- to-nose testing bilaterally. She reports good pinprick appreciation over all limbs. I did not test her gait. Reflexes are trace at the ankles and 1+ symmetrically at the wrists. She has full visual workman tested by confrontational finger counting. Extraocular movements are full. Facial motility is a little bit diminished bilaterally, but symmetric. Tongue is midline. Facial sensation is intact. Palate is midline. She can hear. IMPRESSION: 1. At least 3 episodes of collapse with possible protracted time down and memory gap. This would be consistent with seizure, but seizure is not a definite diagnosis. Other possible explanations including tripping and falling with head injury, concussion with retrograde amnesia are not excluded. 2. Prior aneurysmal rupture managed surgically. I do not have history of focal neurologic deficit associated with that event and I do not find definite focal neurologic deficit on bedside exam now. 3. She may have a baseline cognitive impairment syndrome. Donepezil is on board now. Depending on her tolerance and how long she has been taking that, donepezil dose might be increased and memantine might be added later. 4. Multiple central nervous system active medications on board now. I am not certain that she takes her medicines correctly. I am not certain how long she has had these medicines prescribed. Benzodiazepine withdrawal seizure could occur with cessation of temazepam. 5. EEG is consistent with seizure and I think it would be prudent to recommend that she take medicine for seizure control if we cannot establish with certainty that recent episode was associated with temazepam withdrawal or other modifiable toxic/metabolic state. In light of her current polypharmacy with multiple central nervous system active medications already on board, concern for baseline cognitive impairment and risk for falling, I am reluctant to add anything, but I think it would be prudent to recommend she take medicine for seizure control. After considering several options, I think levetiracetam would be reasonable. If she does not tolerate that, there are plenty of other options to consider. Thanks for asking Neurology to see Ms. Yun. I will be glad to follow her as an outpatient, if needed. cc: Edin Salinas III, MD MTDD
--- NOTE | 2019-01-04 19:48 | EEG REPORT ---
DATE: 01/03/2019 COMMENT: This is a digitally recorded EEG on an 78-year-old patient with at least 3 episodes of collapse, memory gap, question of seizure. There is history of craniotomy for management of aneurysmal rupture about 12 years ago. FINDINGS: There is occasional higher amplitude mixed polymorphic and rhythmic theta recorded in the right prefrontal and frontal regions consistent with breach. During waking, 9 Hz posterior rhythm is present intermittently, poorly sustained with uncertain reactivity to eye opening bilaterally. Waking background contains abundant theta across the frontal and central regions. Photic stimulation produced symmetric entrainment. Hyperventilation was not done. Drowsing occurred with appearance of more generalized slowing and attenuation of the posterior rhythm. Stage 2 sleep was not recorded. There is infrequent sharp wave discharge in the right hemisphere with occasional phase reversal at the F8 electrode intermittently throughout the record. No electrographic seizure was recorded. INTERPRETATION: Abnormal EEG because of right hemisphere epileptiform discharge and mild generalized slowing. CORRELATION: This is indicative of a focal disturbance of electric cortical activity in the right hemisphere and would correlate with clinical seizure. Breach rhythm is typical post-craniotomy. cc: MD Gabriele Soliman III, MD [facility]
[2019-01-04] MEDS: RESTORIL PO SCH (20:39)
[2019-01-04] MEDS: MELATONIN PO SCH (20:39)
[2019-01-05] MEDS: MIRALAX PO SCH (09:41)
[2019-01-05] MEDS: FLONASE NAS SCH (09:41)
[2019-01-05] MEDS: KEPPRA PO SCH (09:42)
[2019-01-05] MEDS: CLARITIN PO SCH (09:42)
[2019-01-05] MEDS: PRILOSEC PO SCH (09:42)
[2019-01-05] MEDS: KEFLEX PO SCH (09:42)
[2019-01-05] MEDS: ARICEPT PO SCH (09:42)
[2019-01-05] MEDS: CARDIZEM PO SCH (09:42)
--- NOTE | 2019-01-05 10:53 | DISCHARGE SUMMARY ---
ADMISSION DATE: 12/28/2018 DISCHARGE DATE: 01/05/2019 DISPOSITION: [facility] [place]. CONSULTATIONS DURING THIS ADMISSION: Neurology was consulted. Patient was seen by Dr. Salinas. INVASIVE PROCEDURES DONE DURING THIS ADMISSION: None. IMAGING STUDIES OF SIGNIFICANCE: 1. A CT scan of the head, C-spine, and maxillofacial sinus x-ray was done which showed severe forehead and right periorbital soft tissue hematoma. No internal injuries. 2. A CT scan of the chest, abdomen, and pelvis showed no acute injuries. 3. A chest x-ray done a couple days later showed no infiltrates. 4. An EEG which was done on the showed right hemisphere epileptiform discharge and mild generalized slowing. ADMISSION DIAGNOSES: 1. Altered mental status. 2. Dehydration. 3. Status post multiple falls. 4. Right frontal scalp hematoma. 5. Right eye periorbital hematoma. 6. Rhabdomyolysis. 7. Acute kidney injury. DIAGNOSES AT THE TIME OF DISCHARGE: 1. Recurrent episode of loss of consciousness secondary to seizure disorder. The patient was evaluated during the hospital course. An electroencephalogram was positive. Was seen by neurology. Has been started on levetiracetam. The patient has not had any more seizures during the hospital course. 2. Clinical volume depletion with renal impairment, improved. 3. History of chronic kidney disease stage 3A to B, stable. 4. Rhabdomyolysis, improved during the hospital course. 5. History of dementia. 6. Status post multiple falls. 7. History of brain bleeding, status post craniotomy and ventriculostomy. 8. Right frontal scalp and right periorbital hematoma after fall, significantly improved. DISCHARGE MEDICATIONS: 1. Crestor 10 mg p.o. daily. 2. Diltiazem 120 p.o. daily. 3. Restoril 50 mg p.o. at bedtime. 4. Keppra 500 b.i.d. 5. Gabapentin 100 mg p.o. at bedtime. 6. Restoril 30 mg p.o. at bedtime. 7. Melatonin 5 mg p.o. at bedtime. 8. Trazodone 100 mg p.o. daily. 9. Loratadine 10 mg p.o. daily. 10. Donepezil 5 mg p.o. daily. PRESENTING COMPLAINT: Altered mental status. HISTORY OF PRESENTING COMPLAINT: Ms. Yun is an 78-year-old, female with a history of previous brain bleed secondary to aneurysm, status post clips and ventriculostomy, presented to the emergency department because of history of frequent falls. The history initially was unclear how she got to the floor. 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 After she was found, she was confused. She was found to have sustained soft tissue injury to the right periorbital region. She was brought to the emergency room where she was evaluated and was admitted for loss of consciousness to be evaluated. HOSPITAL COURSE: Ms. Yun was admitted to the medical floor. Initially was found to be in rhabdomyolysis with a presenting CK level of 5075 which, with adequate hydration, that came down to 726. She has been advised to continue adequate oral hydration. Ms. Yun was also found to be remarkably dry. Creatinine went up to 1.8. She does have a baseline of about 1.3 to 1.5. With adequate hydration, this also came down to 1.5. Throughout the hospital course, Ms. Yun was also evaluated by physical therapy. She has been able to ambulate with full weightbearing yesterday. She is standby with assistance, with verbal guidance as well. Because of the altered mental status and the complex postictal state, there was the suspicion that she probably has seizures so neurology was consulted. Patient was seen by Dr. Salinas. An MRI could not be done because of clips in her brain. An EEG was done which suggested generalized right hemisphere epileptiform discharges. Recommendations were given by neurology to start her on levetiracetam and they will follow up with her on outpatient. This morning, Ms. Yun refers to be feeling okay. No new complaints. Her vitals are stable with a blood pressure of 131/56, pulse of 73, respirations are 16, temperature is 97.9 degrees. The right periorbital swelling has significantly resolved. Physical exam for most part is unremarkable. We think she is fairly stable to be discharged and transferred to rehab to improve on her physical deficits. Ms. Yun has been advised on the new medication that she has been started (levetiracetam) and also compliant with all medication. She needs to follow up with Dr. Salinas. She needs to observe seizure precautions all the time. The [place] code for seizures were all discussed with her by Dr. Salinas. Time spent for discharge was 37 minutes. cc: Gabriele Rogers MD MTDMandy
[2019-01-05 11:24] VITALS: BP 122/55
== END 2019-01-05 12:40 | DRG 101 ==
LOC: ED 21:15 → SUATTDRO 12-28 03:30 → EDIPHOLD 12-28 03:30 → 2N 12-28 12:15 → 3N 12-29 22:15
PROVIDERS: ATTEND Internal Medicine